=== PATIENT | male | born 1965 | race Caucasian/White ===

== ENCOUNTER 2022-04-08 11:39 | Outpatient (CLI) | payer BC, SELFPAY ==
--- NOTE | 2022-04-08 11:52 | XRR_ITS ---
PROCEDURE INFORMATION: Exam: XR Right Ankle Exam date and time: 04/08/2022 12:00 PM Age: 56 years old Clinical indication: Pain and injury or trauma; Other: Twisted ankle; Sprain or strain; Right; Additional info: R ankle pain/swelling TECHNIQUE: Imaging protocol: Radiologic exam of the Right ankle. Views: 3 or more views. COMPARISON: No relevant prior studies available. FINDINGS: Bones/joints: There is a slightly displaced oblique fracture involving the distal fibula. Possible nondisplaced fracture involving the posterolateral tibia versus artifact from overlying fibular fracture. The ankle mortise is intact. Soft tissues: There is circumferential superficial soft tissue swelling. XR/XR ankle RT min 3V* [id number] IMPRESSION: 1. Distal fibular fracture. 2. Possible nondisplaced distal tibial fracture. Consider CT scan.
== END 2022-04-08 11:40 | disposition home or self-care (01) ==
LOC: RAD 11:44
PROVIDERS: PCP Nurse Practitioner Family; Visit Provider Nurse Practitioner Family
DX: M25.571 Pain in right ankle and joints of right foot (principal); M79.89 Other specified soft tissue disorders; S82.301A Unspecified fracture of lower end of right tibia, initial encounter for closed fracture; X58.XXXA Exposure to other specified factors, initial encounter
CPT/HCPCS: 73610

== ENCOUNTER 2022-04-17 10:53 | Day surgery (SDC) | payer BC, SELFPAY ==
[2022-04-16 15:21] VITALS: BMI 25.8
[2022-04-17 11:13] VITALS: BP 116/110; PULSE 58; RESP 18; TEMP 36.6; O2SAT 99
[2022-04-17] MEDS: sodium chloride 0.9% 1,000 ML 30 ML IV (11:30)
[2022-04-17] MEDS: CELEcoxib 200 mg Capsule 400 MG PO (11:39)
[2022-04-17] MEDS: gabapentin 300 mg Capsule PO (11:40)
--- NOTE | 2022-04-17 12:17 | ANES.PREANE2 ---
Pre-Anesthetic Assessment Height/Weight: Height 1.73 m Weight 77.111 kg Temp Pulse Resp BP Pulse Ox O2 Del Method 97.9 F 58 L 18 116/110 99 04/17/22 11:13 04/17/22 11:13 04/17/22 11:13 04/17/22 11:13 04/17/22 11:13 04/17/22 11:13 Preop Diagnosis: Right ankle fibular fracture Operation Date: 04/17/22 12:45 Proposed Procedures p ORIF right distal fibular fracture CPT 67521 S82.61XA(Right) - Ramos Morton DPM Familial anesthetic complications: None Was Beta Lidia taken within 24 hours: N/A Was Clonidine taken within 24 hours: N/A Last intake: Intake Last Liquid Date 04/16/22 Last Liquid Time 20:00 Last Solid Date 04/16/22 Last Solid Time 18:45 Social Tobacco Exam alert, oriented x 3, clear to auscultation bilaterally and regular rate & rhythm Airway Mallampati: Class II Dentition: other (missing) GI Gastroesophageal Reflux Disease lee's esophagus Anesthetic Plan ASA status: 2 Anesthesia: General and Regional (specify below) Risk of > 500 ml blood loss (7ml/kg in children): No Medications/Allergies Home Medications Medication Instructions Recorded Confirmed Last Taken Type acamprosate 333 mg tablet,delayed 333 mg PO BID 04/14/22 04/16/22 Unknown History release fluoxetine 20 mg capsule 20 mg PO DAILY 04/14/22 04/16/22 04/16/22 History pantoprazole 40 mg tablet,delayed 40 mg PO DAILY 04/14/22 04/16/22 04/16/22 History release hydrocodone 5 mg-acetaminophen 325 1 tab PO Q6H PRN pain 7 days #28 04/17/22 Unknown Rx mg tablet tabs ibuprofen 800 mg tablet 800 mg PO TID 04/17/22 04/17/22 04/16/22 History Allergies Allergy/AdvReac Type Severity Reaction Status Date / Time No Known Allergies Allergy Unverified 04/16/22 15:19 Current Medications Generic Name Dose Route Start Last Admin Trade Name Freq PRN Reason Stop Dose Admin Sodium Chloride 1,000 mls @ 30 mls/hr 04/17/22 11:00 04/17/22 11:30 Sodium Chloride 0.9% IV 04/18/22 10:59 30 mls/hr .Q24H JAZIEL Administration Data Anesthesia Cardiac Studies: No Data to Display
--- NOTE | 2022-04-17 12:18 | ANES.PROC ---
Anesthesia Procedures Procedure/Date: 04/17/22 Nerve Block ^: Nerve Block 1: Main Anesthesia: general anesthesia Time Out Performed: Yes Consent: requested by attending/covering physician, from patient, from other, risks and benefits reviewed and patient agrees to proceed Nerve block location: popliteal (R) Anesthesia monitors applied: pulse oximetry, EKG, BP cuff and oxygen Nerve block position: supine Anesthetic Used: ropivicaine 0.5% (30 ml) and with decadron (4 mg) Ultrasound used to: recognize landmarks and visualize and ID femerol nerve Nerve Stimulator Used?: No Interscalene/Femoral BLK: 4 stimuplex 21 g needle used for position and inplane approach, visualize local anesthetic spread and no vascular puncture identified Patient Tolerated Procedure: well Complications: none
--- NOTE | 2022-04-17 12:20 | W.PM.OPSUD ---
Surgery/Procedure H&P Update DATE OF PROCEDURE: April 17, 2022 DATE H&P PERFORMED: 04/14/22 CHANGES TO PREVIOUS DOCUMENTATION: no changes PREOP DIAGNOSIS: Right ankle fibular fracture PLANNED PROCEDURE: Operation Date: 04/17/22 12:45 Proposed Procedures p ORIF right distal fibular fracture CPT 40395 S82.61XA(Right) - Ramos Morton DPM
[2022-04-17] MEDS: ceFAZolin 2,000 MG in sodium chloride 0.9% (plus) 50 ML 100 MG IV (13:09)
--- NOTE | 2022-04-17 14:04 | XRR_ITS ---
PROCEDURE INFORMATION: Exam: XR Right Ankle Exam date and time: 04/17/2022 2:08 PM Age: 56 years old Clinical indication: Device placement; Joint fixation hardware; Prior surgery; Surgery date: Post-operative (0-2 days); Additional info: Post op, postop portable XR right ankle thankyou TECHNIQUE: Imaging protocol: Radiologic exam of the Right ankle. Views: 3 or more views. COMPARISON: CR XR ankle RT min 3V* [id number] 04/08/2022 12:00 PM FINDINGS: Bones/joints: Recently postop status demonstrating ORIF hardware with plate and multiple screws over the distal fibular fracture in anatomic alignment. There is mild regional soft tissue swelling. No other acute fracture dislocation is identified. No significant arthritic disease. Soft tissues: Lateral surgical skin samantha. Other findings: Three views submitted. Overlying cast somewhat obscuring details. XR/XR ankle RT min 3V* [id number] IMPRESSION: Postop exam in good alignment.
[2022-04-17 14:05] VITALS: BP 172/98; PULSE 74; RESP 13; TEMP 36.4; O2SAT 100
[2022-04-17 14:11] VITALS: BP 166/117; PULSE 75; RESP 10; TEMP 36.4; O2SAT 99
[2022-04-17 14:16] VITALS: BP 166/95; PULSE 82; RESP 16; TEMP 36.8; O2SAT 99
[2022-04-17 14:27] VITALS: BP 177/110; PULSE 70; RESP 16; O2SAT 100
[2022-04-17 14:37] VITALS: BP 170/103
--- NOTE | 2022-04-17 15:56 | ANE.PACU2 ---
Inpatient post-anesthesia follow up: Airway intact: Yes Vital signs: Temperature 98.2 F Pulse Rate 70 Respiratory Rate 16 Blood Pressure 170/103 Pulse Oximetry 100 Oxygen Delivery Me thod Room Air Oxygen Flow Rate Fraction of Inspir ed Oxygen Hydration adequate: Yes Nausea and vomiting: No Pain level: 1 Mental status: Baseline
--- NOTE | 2022-04-17 18:00 | PM.OP ---
Operative Report Date of procedure: April 18, 2022 Pre-op diagnosis: Preop Diagnosis Right ankle fibular fracture Post-op diagnosis: Same Post-op findings: Right ankle distal fibular fracture, [place] B. Upon open reduction internal fixation, syndesmosis was noted to be intact Procedure done: ORIF right ankle distal fibula fracture CPT 01743 Implants: Anatomical fibular plate Da with 3.5 mm interfrag screw Specimens removed/disposition: None Surgeon: Dr. Ramos Morton, D.P.MHuy Estimated blood loss: Less than 20 cc 45 minutes Complications: None Findings: See above Procedure: Patient is a 56-year-old male that has a history of right ankle distal fibular fracture. The extent of the injury requires open reduction internal fixation to prevent posttraumatic arthritis and instability of the right ankle. A lengthy discussion regarding the procedure, including risks and complications has been had with the patient and is noted in the recent clinic note. Written and verbal consent have been obtained. All patient questions have been answered to the patient?s satisfaction. No written or verbal guarantees have been given or implied. The patient has been NPO since midnight. The history has been reviewed and the history and physical is current. The signed consent was confirmed and placed in the patient chart. Patient imaging has been reviewed and is consistent with the diagnosis. Under mild sedation, the patient was brought into the operating room and placed on the table in the supine position. IV antibiotics were given by the anesthesia team as preoperative surgical prophylaxis. General sedation was then performed by the anesthesianteam. A popliteal block was performed by the anesthesia department. A pneumatic tourniquet was then placed about the right thigh. The operative extremity was then prepped and draped in the usual fashion. The extremity was then elevated and exsanguinated before the tourniquet was inflated to 300 mmHg. After inflation, the following procedure was then performed. Attention was directed to the lateral aspect of the right ankle where a 10 cm incision was made over the distal fibula. Dissection was carried down through subcutaneous and superficial fascia to the level of the fibula. Any bleeders were cauterized as necessary during dissection. Vital structures were identified and retracted out of the operative field. The oblique fracture at the level of the ankle mortise was visualized clearly. Hematoma was evacuated from fracture site using curette and dental pick. Next, a [id number] reduction clamp was used to reduce the ankle fracture and temporarily fixated. Good positioning of the distal fibula was noted clinically as well as on C-arm imaging. Next the fibula was predrilled for the interfrag screw. A 3.5 mm nonlocking screw was placed across the fracture site in standard interfrag fashion. Anatomical fibular plate from [employer] was placed on the lateral aspect of the fibula. Good positioning of the plate was noted on C-arm imaging as well as clinically. The holes of the plate were drilled and filled in standard fashion using 3.5 mm locking screws. Good position of the screws was noted on C-arm imaging. Syndesmosis was stressed at this point and was noted to be intact with no gapping. The site was then irrigated with copious amounts of sterile saline before attention was directed to closure. Deep tissue was closed with 2-0 Vicryl followed by subcuticular closure with 3-0 Vicryl and skin closure with skin samantha. The tourniquet was let down good hyperemic response was noted to all digits of the right foot. The incision was dressed with Xeroform, 4 x 4 gauze, Kerlix before being placed in a well-padded below the knee posterior splint. The patient tolerated the procedure and anesthesia well and without complication. The patient was transported from the operating room to the recovery room with vital signs stable and vascular status intact to all digits of the right foot. The patient was given both written and verbal instructions to remain strict nonweightbearing to the operative extremity, to keep dressings/splint clean, dry and intact and to take pain medication as directed. The patient will follow-up in the outpatient setting at their scheduled appointment. The patient was discharged with my personal number and was instructed to call if any questions or issues should arise. They were discharged home once anesthesia criteria was met.
== END 2022-04-17 14:55 | disposition home or self-care (01) ==
PROVIDERS: PCP Nurse Practitioner Family; Visit Provider Podiatrist Foot & Ankle Surgery
PROC: (CPT 27792; principal; 2022-04-17 12:35)
DX: S82.61XA Displaced fracture of lateral malleolus of right fibula, initial encounter for closed fracture (principal); W22.8XXA Striking against or struck by other objects, initial encounter; K21.9 Gastro-esophageal reflux disease without esophagitis
CPT/HCPCS: 27792; 73610; 76000; C1713; J0690; J1100; J2405; J2704; J2795; J3010; J3490; J7030

== ENCOUNTER → 2022-04-30 09:32 | Outpatient (BNVA) | payer BC, SELFPAY | PROVIDERS: PCP Nurse Practitioner Family; Visit Provider Podiatrist Foot & Ankle Surgery | DX: S82.401A Unspecified fracture of shaft of right fibula, initial encounter for closed fracture (principal); X58.XXXA Exposure to other specified factors, initial encounter | CPT/HCPCS: 73610 ==

== ENCOUNTER → 2022-05-07 13:05 | Outpatient (BNVA) | payer BC, SELFPAY | PROVIDERS: PCP Nurse Practitioner Family; Visit Provider Podiatrist Foot & Ankle Surgery | DX: S82.401A Unspecified fracture of shaft of right fibula, initial encounter for closed fracture (principal); X58.XXXA Exposure to other specified factors, initial encounter; M25.571 Pain in right ankle and joints of right foot | CPT/HCPCS: 73610 ==

== ENCOUNTER → 2022-05-30 13:30 | Outpatient (BNVA) | payer BC, SELFPAY | PROVIDERS: PCP Nurse Practitioner Family; Visit Provider Podiatrist Foot & Ankle Surgery | DX: S82.401A Unspecified fracture of shaft of right fibula, initial encounter for closed fracture (principal); Z98.890 Other specified postprocedural states; X58.XXXA Exposure to other specified factors, initial encounter | CPT/HCPCS: 73610 ==